=== PATIENT | female | born 1945 | race Caucasian/White ===

== ENCOUNTER 2016-09-18 05:37 | Inpatient (IN) | payer MEDICARE, OTHER ==
[2016-09-12 10:46] LABS: ASCORBIC ACID (UR NOT ORDER) NEG (NEG); BASOPHILS 0.3 %; BASOPHILS ABSOLUTE 0.03 10/3/uL (0.0-0.16); BILIRUBIN, URINE NEGATIVE (NEG); EOSINOPHILS 1.5 %; EOSINOPHILS ABSOLUTE 0.17 10/3/uL (0.0-0.53); IMMATURE GRANULOCYTES 0.2 %; IMMATURE GRANULOCYTES ABSOLUTE 0.02 10/3/uL (0.0-0.11); KETONE, URINE NEGATIVE (NEG); LEUKOCYTE ESTERASE(NOT OR NEG (NEG); LYMPHOCYTES 26.6 %; LYMPHOCYTES ABSOLUTE 2.99 10/3/uL (0.67-4.30); MEAN CORPUS HGB CONC 33.7 g/dL (32.0-36.0); MEAN CORPUSCULAR HEMOGLOB 33.7 pg (26.0-34.0); MEAN PLATELET VOLUME 10.9 fL (9.2-13.0); MONOCYTES 6.1 %; MONOCYTES ABSOLUTE 0.68 10/3/uL (0.21-1.20); NEUTROPHILS 65.3 %; NEUTROPHILS ABSOLUTE 7.33 10/3/uL (2.02-8.40); PLATELET COUNT 275 10/3/uL (150-400); RBC DISTRIBUTION WIDTH 13.6 % (12.0-16.0); RED CELL COUNT 3.98 10/6/uL (4.0-5.6); WBC (NOT ORDERED) (RFLEX) 5 (0-5); WHITE BLOOD CELLS 11.2 10/3/uL (4.5-10.5)
[2016-09-12 10:47] LABS: HEMATOCRIT 39.8 % (36.0-48.0); HEMOGLOBIN 13.4 g/dL (12.0-16.0); MANUAL DIFF NO %
[2016-09-12 10:50] LABS: INTERNATIONAL NORMAL RATI 1.1 UNITS (-); PARTIAL THROMBO TIME 29.9 SEC (22.5-37.2); PROTIME (NOT ORD) 13.9 SEC (12.0-14.5)
[2016-09-12 10:58] LABS: A/G RATIO 1.3 (0.7-1.9); ALBUMIN 4.4 G/DL (3.5-5.0); ALKALINE PHOSPHATASE 91 U/L (45-117); CALCIUM, SERUM 9.8 MG/DL (8.5-10.4); CHLORIDE, SERUM 107 MMOL/L (96-112); CREATININE 1.11 MG/DL (0.55-1.02); GFR AFRICAN AMERICAN 58 ML/MIN (>=60); GFR NON AFRICAN AMERICAN 50 ML/MIN (>=60); GLOBULIN 3.3 G/DL (2.5-4.1); GLUCOSE, SERUM 102 MG/DL (60-99); POTASSIUM, SERUM 4.3 MMOL/L (3.5-5.3); SGOT(AST) 15 U/L (5-40); SGPT(ALT) 21 U/L (5-65); SODIUM, SERUM 139 MMOL/L (135-148); TOTAL BILIRUBIN 0.7 MG/DL (0-1.2); TOTAL PROTEIN 7.7 G/DL (6.0-8.5)
[2016-09-12 10:59] LABS: BUN (BLOOD UREA NITROGEN) 29 MG/DL (6-23); CO2 (CARBON DIOXIDE) 29 MMOL/L (24-34)
--- NOTE | ~2016-09-18 | OP ---
Record Of Operation [facility] [address] [place]. [address] NAME: CHLOE LOZADA [birth year]OB[birth year] : [birth year] STATUS : ADM IN PAT#: [id number] AGE: 70 ADM/REG DATE : 09/18/16 MR#: [id number] REPORT SERV DATE: 09/18/16 DICTATED BY: LAUREN CARVER DATE: 09/18/16 REPORT STATUS : Draft TRANSCRIBED BY: MODL DATE: 09/18/16 DATE OF PROCEDURE: 09/18/2016 PREOPERATIVE DIAGNOSIS: Left AVN rotator cuff tear, early degenerative joint disease, AC pain, cervical overlay. POSTOPERATIVE DIAGNOSIS: Left AVN rotator cuff tear, early degenerative joint disease, AC pain, cervical overlay. PROCEDURES: 1. Left reverse total shoulder arthroplasty. 2. AC resection, mini open. SURGEON: Lauren Carver M.D. COMPLICATIONS: None. ANESTHESIA: General endotracheal with regional block. INDICATIONS: This 70-year-old female is well known to me. She has had extensive nonoperative management after a fracture. She had some AVN by MRI and a rotator cuff tear. She had an EMG-proven potential radiculitis, but had a good response to subacromial injection. Based on that, she wished to proceed with a reverse shoulder arthroplasty. After discussion of risks, benefits, alternatives, we discussed persistent pain as potential outcome here. PROCEDURE IN DETAIL: The patient was induced in a supine position. She was taken to the beach-chair position with care to maintain the cervical lordosis. A time-out protocol was enforced. Ancef was administered. AC resection: We made a saber incision over the AC. Dissected skin flaps. Longitudinally, dissected the deltotrapezial fascia, resected with a saw 8 mm off the distal clavicle. After subperiosteal dissection with a saw, osteotome and rongeur, we closed with a deep 0 Vicryl and closed the wound in layers. Reverse shoulder arthroplasty: We made a longitudinal deltopectoral approach. The cephalic vein was dissected and mobilized laterally. The pectoralis was released 1 cm from its insertion. We dissected the subdeltoid space and placed a Ramos retractor. The biceps tendon was soft tissue tenodesed to the pectoralis remnant. We palpated and preserved the axillary nerve. We performed a peel technique on the subscapularis and dislocated the shoulder. We made a neck cut made in 20 degrees of retroversion and did sequential reaming and broaching up to a 12 and removed the excess bone spurs. A Fukuda retractor was placed. We dissected the inferior capsule and released it. Middle and inferior glenohumeral ligaments were released. A Kallie was used to remove the labrum and the entry point for the trabecular metal base plate was selected inferiorly on the Record Of Operation [address] [address] NAME: CHLOE LOZADA [birth year]OB[birth year] : [birth year] STATUS : ADM IN PAT#: [id number] AGE: 70 ADM/REG DATE : 09/18/16 MR#: [id number] REPORT SERV DATE: 09/18/16 DICTATED BY: LAUREN CARVER. DATE: 09/18/16 REPORT STATUS : Draft TRANSCRIBED BY: GEE DATE: 09/18/16 glenoid. We then reamed that and impacted the trabecular metal base plate after preparing the bone surface. Two 36 mm screws were placed in locking mode. The 36 mm glenosphere was then impacted and checked with good positioning. We then trialed a 0 poly which was satisfactory. We placed FiberWires around the stem transosseously and impacted the reverse arthroplasty into 20 degrees of retroversion. This was then reduced. The subscapularis was repaired and Hemovac drain was placed. Subscap was repaired in 10 degrees of external rotation. We irrigated copiously with pulsatile lavage and tranexamic acid. The patient tolerated the procedure well and taken to PACU in stable condition. POSTOPERATIVE PLAN: Reverse shoulder protocol. TOREY/NEGRAL Lauren Carver M.D. / [id number] CC: Lauren Carver M.D.
[~2016-09-18 05:37] MED LIST: CLARIT10 PO; DITRO5 PO; MEVACOR40 MG PO; NORV10 PO; PCET PO; T PO; VASOTEC20 MG PO; XALAT OPH; Z100 PO; [UNRECOGNIZED DRUG - OTHER] PO
[2016-09-19 04:17] LABS: HEMATOCRIT 24.6 % (36.0-48.0); HEMOGLOBIN 8.3 g/dL (12.0-16.0)
[2016-09-19 04:29] LABS: BUN (BLOOD UREA NITROGEN) 16 MG/DL (6-23); CALCIUM, SERUM 8.7 MG/DL (8.5-10.4); CHLORIDE, SERUM 107 MMOL/L (96-112); CO2 (CARBON DIOXIDE) 22 MMOL/L (24-34); CREATININE 0.97 MG/DL (0.55-1.02); GFR AFRICAN AMERICAN 68 ML/MIN (>=60); GFR NON AFRICAN AMERICAN 59 ML/MIN (>=60); GLUCOSE, SERUM 142 MG/DL (60-99); POTASSIUM, SERUM 4.4 MMOL/L (3.5-5.3); SODIUM, SERUM 139 MMOL/L (135-148)
[2016-09-19] MEDS ORDERED: PR25 PO (08:18)
[2016-09-19] MEDS ORDERED: ASA5GR PO (08:18)
[2016-09-19] MEDS ORDERED: PERCOCET 7.5/321 TAB PO (08:18)
== END 2016-09-19 11:44 | disposition home or self-care (01) | DRG 483 ==
LOC: SDC/OF 05:37 → PACU 10:37 → 3SO 11:54
PROVIDERS: Orthopaedic Surgery Sports Medicine
PROC: 0RRK00Z Replacement of Left Shoulder Joint with Reverse Ball and Socket Synthetic Substitute, Open Approach (ICD-10-PCS; principal; 2016-09-18 07:45)
DX: M87.812 Other osteonecrosis, left shoulder (principal); I10 Essential (primary) hypertension; M19.012 Primary osteoarthritis, left shoulder
CPT/HCPCS: 36415; 73030-LT; 80048; 80053; 81001; 85014; 85018; 85025; 85610; 85730; 86850; 86900; 86901; 87641; 88305; 88311; 93005; 97110-GP; 97116-GP; 97161-GP; A9270-GY; C1713; C1776; G8978-CJ-GP; G8979-CH-GP; J0690; J2250; J2270; J2370; J2405; J2710; J2795; J3010